=== PATIENT | female | born 1995 ===

== ENCOUNTER 2017-07-05 10:43 | Emergency (ER) | payer OTHER ==
[2017-07-05 11:21] LABS: RBC URINE 3 /hpf (0-3); URINE BACTERIA OCC (<OCC); URINE BILIRUBIN NEGATIVE (NEGATIVE); URINE BLOOD NEGATIVE (NEGATIVE); URINE COLOR Yellow (YELLOW); URINE GLUCOSE (UA) NORMAL (Normal); URINE KETONE NEGATIVE (NEGATIVE); URINE LEUKOCYTE ESTERASE TRACE Leu/uL (Negative); URINE PROTEIN NEGATIVE (NEGATIVE); URINE UROBILINOGEN NORMAL mg/dL (0.2-1.0); WBC URINE 4 /hpf (0-5)
--- NOTE | 2017-07-05 12:08 | C.PDOC ---
History Of Present Illness 22 year old female with a history of gastritis presents to the ED with complaints of left sided back and pelvic pain, exacerbated by movement, that began last night. Patient states she was relaxing at home on her day off when the pain suddenly began. She denies use of control and states she is not sexually active. Patient denies fever, chills, nausea, vomiting, cough, chest pain, shortness of breath, or dysuria. Time Seen by Provider: 07/05/17 11:08 Chief Complaint (Nursing): Abdominal Pain History Per: Patient History/Exam Limitations: no limitations Onset/Duration Of Symptoms: Hrs (began last night ) Current Symptoms Are (Timing): Still Present Quality Of Discomfort: "Pain" Associated Symptoms: denies: Fever, Chills, Nausea, Vomiting, Urinary Symptoms Exacerbating Factors: Movement Recent travel outside of the [place]: No Abnormal Vaginal Bleeding: No Past Medical History Reviewed: Historical Data, Nursing Documentation, Vital Signs Vital Signs: Last Vital Signs Temp 98.4 F 07/05/17 15:41 Pulse 62 07/05/17 15:41 Resp 16 07/05/17 15:41 BP 109/67 07/05/17 15:41 Pulse Ox 100 07/05/17 15:41 - Medical History PMH: Gastritis Family History: States: Unknown Family Hx - Social History Hx Alcohol Use: No Hx Substance Use: No - Immunization History Hx Tetanus Toxoid Vaccination: No Hx Influenza Vaccination: No Hx Pneumococcal Vaccination: No Review Of Systems Constitutional: Negative for: Fever, Chills Cardiovascular: Negative for: Chest Pain, Palpitations Respiratory: Negative for: Cough, Shortness of Breath Gastrointestinal: Negative for: Nausea, Vomiting Genitourinary: Positive for: Pelvic Pain (left sided). Negative for: Dysuria Musculoskeletal: Positive for: Back Pain (left side back pain ) Physical Exam - Physical Exam Additional Physical Exam Comments: Constitutional: No acute distress. Head: Normocephalic. Atraumatic. Eyes: PERRL. EOMI ENT: Moist mucous membranes. Neck: Supple. Cardiovascular: Regular rate and rhythm. No murmur. Chest: No tenderness. Respiratory: Clear to auscultation bilaterally. No wheezing, rhonchi, or rales. GI: Soft. Nontender. Nondistended. no rebound or guarding. Normoactive bowel sounds. Back: No CVA tenderness. Left sided lumbar tenderness, muscle spasm palpated. Musculoskeletal: No swelling of extremities. No calf tenderness. Skin: No rash. Neurologic: Alert, no gross focal deficit. ED Course And Treatment O2 Sat by Pulse Oximetry: 100 (room air ) Progress Note: UA and Upreg were ordered, patient was given Toradol. Medical Decision Making Medical Decision Making: pt feeling much better now, with minimal pain. will d/c with nsaids and muscle relaxant. Disposition - Disposition Disposition: HOME/ ROUTINE Disposition Time: 15:18 Condition: IMPROVED Additional Instructions: [place] ibuprofeno segn lo prescrito; [place] relajante muscular cuando no conduce o trabaje. te hace dormir-puede alos slo tomarlo a la hora de acostarse. Seguimiento en la clnica mdica la prxima semana. Evite cualquier levantamiento pesado Prescriptions: Cyclobenzaprine [Cyclobenzaprine HCl] 10 mg PO Q8 #9 tab Ibuprofen [Motrin] 600 mg PO TID #30 tab Instructions: Muscle Spasm (ED) Forms: Gen Discharge Inst Bol[place]ian, [employer] (Bolivian) Print Language: SLOVENIAN - Clinical Impression Clinical Impression: Muscle spasm of back - PA / [employer] / Resident Statement MD/DO has reviewed & agrees with the documentation as recorded. - Scribe Statement The provider has reviewed the documentation as recorded by the Scribe Jacqui Seaman All medical record entries made by the Scribe were at my direction and personally dictated by me. I have reviewed the chart and agree that the record accurately reflects my personal performance of the history, physical exam, medical decision making, and the department course for this patient. I have also personally directed, reviewed, and agree with the discharge instructions and disposition.
--- NOTE | 2017-07-05 14:50 | CT ---
PROCEDURE: CT Abdomen and Pelvis without intravenous contrast HISTORY: left flank pain hematuria COMPARISON: None. TECHNIQUE: Without contrast.. Contrast Dose: 0 Radiation dose: Total exam DLP = 483.67 mGy-cm. This CT exam was performed using one or more of the following dose reduction techniques: Automated exposure control, adjustment of the mA and/or kV according to patient size, and/or use of iterative reconstruction technique. FINDINGS: LOWER THORAX: Unremarkable. LIVER: Unremarkable. No gross lesion or ductal dilatation. GALLBLADDER AND BILE DUCTS: Unremarkable. PANCREAS: Unremarkable. No gross lesion or ductal dilatation. SPLEEN: Unremarkable. ADRENALS: Unremarkable. No mass. KIDNEYS AND URETERS: No mass, calculus or hydronephrosis. No hydroureter or ureteral calculus. VASCULATURE: Unremarkable. No aortic aneurysm. BOWEL: Unremarkable. No obstruction. No gross mural thickening. APPENDIX: Unremarkable. Normal appendix. PERITONEUM: Unremarkable. No free fluid. No free air. LYMPH NODES: Unremarkable. No enlarged lymph nodes. BLADDER: Unremarkable. REPRODUCTIVE: Normal uterus. BONES: No acute fracture. OTHER FINDINGS: None. IMPRESSION: No evidence of urinary calculus or urinary tract obstruction. Unremarkable examination.
[2017-07-05 15:20] VITALS: O2SAT 100
[2017-07-05 15:42] VITALS: BP 109/67; PULSE 62; RESP 16; TEMP 98.4
== END 2017-07-05 15:42 | disposition home or self-care (01) ==
LOC: C.ER 10:43
DX: M62.830 Muscle spasm of back (principal)
CPT/HCPCS: 74176; 81001; 84703; 96374; 99284; J1885

== ENCOUNTER 2018-06-15 06:03 | Emergency (ER) | payer OTHER ==
[2018-06-15 06:13] VITALS: O2SAT 100
[2018-06-15] MEDS ORDERED: Sodium Chloride 0.9% 1,000 ML IV ONE (06:15)
--- NOTE | 2018-06-15 06:15 | C.PDOC ---
History Of Present Illness The patient presents to the ED for evaluation of abdominal pain which began two days ago. Patient notes her last menstrual period was in February 2018. She reports mild nausea and denies fever, chills, vaginal bleeding, vomiting. Time Seen by Provider: 06/15/18 06:14 Chief Complaint (Nursing): Abdominal Pain History Per: Patient History/Exam Limitations: no limitations Onset/Duration Of Symptoms: Days (2) Current Symptoms Are (Timing): Still Present Location Of Pain/Discomfort: Diffuse Radiation Of Pain To:: None Quality Of Discomfort: Dull, Cramping, "Pain" Associated Symptoms: Nausea. denies: Fever, Chills, Vomiting Exacerbating Factors: None Alleviating Factors: None Last Bowel Movement: Today Recent travel outside of the [place]: No Additional History Per: Patient Abnormal Vaginal Bleeding: No Last Menstral Period: 02/2018 Past Medical History Reviewed: Historical Data, Nursing Documentation, Vital Signs Vital Signs: Last Vital Signs Temp 98.5 F 06/15/18 06:10 Pulse 88 06/15/18 06:10 Resp 16 06/15/18 06:10 BP 114/73 06/15/18 06:10 Pulse Ox 100 06/15/18 06:27 - Medical History PMH: Gastritis Surgical History: No Surg Hx Family History: States: Unknown Family Hx - Social History Hx Alcohol Use: No Hx Substance Use: No - Immunization History Hx Tetanus Toxoid Vaccination: No Hx Influenza Vaccination: No Hx Pneumococcal Vaccination: No Review Of Systems Constitutional: Negative for: Fever, Chills Cardiovascular: Negative for: Chest Pain, Palpitations Respiratory: Negative for: Cough, Shortness of Breath Gastrointestinal: Positive for: Nausea, Abdominal Pain. Negative for: Vomiting , Diarrhea Genitourinary: Negative for: Dysuria, Frequency, Hematuria, Vaginal Discharge, Vaginal Bleeding Skin: Negative for: Rash, Lesions, Jaundice, Bruising Neurological: Negative for: Weakness, Numbness Physical Exam - Physical Exam Appears: Non-toxic, No Acute Distress Skin: Warm, Dry Head: Normacephalic Eye(s): bilateral: Normal Inspection Oral Mucosa: Moist Neck: Supple Chest: Symmetrical, No Deformity, No Tenderness Cardiovascular: Rhythm Regular, No Murmur Respiratory: No Rales, No Rhonchi, No Wheezing Gastrointestinal/Abdominal: Soft, Tenderness (mild, suprapubic ), No Guarding, No Rebound Extremity: Normal ROM, Capillary Refill (less than 2 seconds ) Neurological/Psych: Oriented x3 ED Course And Treatment - Laboratory Results Result Diagrams: 06/15/18 06:28 O2 Sat by Pulse Oximetry: 100 (on RA) Pulse Ox Interpretation: Normal Progress Note: Bloodwork, urinalysis, OB Transvaginal US ordered. IV Fluids given. Disposition Counseled Patient/Family Regarding: Studies Performed, Diagnosis - Disposition Disposition Time: 06:14 Condition: FAIR Forms: [place] [email or web address] (Hong Konger) - Clinical Impression Clinical Impression: Abdominal pain, - Scribe Statement The provider has reviewed the documentation as recorded by the Scribe (Karen Mejía) Provider Attestation: All medical record entries made by the Scribe were at my direction and personally dictated by me. I have reviewed the chart and agree that the record accurately reflects my personal performance of the history, physical exam, medical decision making, and the department course for this patient. I have also personally directed, reviewed, and agree with the discharge instructions and disposition. Physician Patient Turnover Patient Signed Over To: Conchita Higuera Handoff Comments: pending lab and ultrasound results
[2018-06-15 06:33] LABS: BASO # 0.1 K/uL (0.0-0.2); BASO % 1.2 % (0.0-2.0); EOS # 0.3 K/uL (0.0-0.7); EOS % 4.6 % (0.0-4.0); HEMOGLOBIN 12.1 g/dL (11.0-16.0); LYMPH # 1.7 K/uL (1.0-4.3); LYMPH % 30.7 % (20.0-40.0); MEAN CELL VOLUME 80.3 fL (81.0-99.0); MEAN CORPUSCULAR HEMOGLOBIN 27.2 pg (27.0-31.0); MEAN CORPUSCULAR HGB CONC 33.9 g/dL (33.0-37.0); MEAN PLATELET VOLUME 8.2 fL (7.2-11.7); MONO # 0.6 K/uL (0.0-0.8); MONO % 10.1 % (0.0-10.0); NEUT % 53.4 % (50.0-75.0); NRBC % 0.1 % (0.0-2.0); RBC 4.44 Mil/uL (3.80-5.20); RED CELL DISTRIBUTION WIDTH 15.4 % (11.5-14.5); WHITE BLOOD COUNT 5.6 K/uL (4.8-10.8)
[2018-06-15 06:41] LABS: INR 1.1; PROTHROMBIN TIME 12.3 SECONDS (9.7-12.2)
[2018-06-15 06:44] LABS: SQUAMOUS EPITHIAL 85 /hpf (0-5); URINE BACTERIA MANY (<OCC); URINE BILIRUBIN NEGATIVE (NEGATIVE); URINE BLOOD 1+ (NEGATIVE); URINE CLARITY Hazy (Clear); URINE COLOR Yellow (YELLOW); URINE GLUCOSE (UA) NORMAL (Normal); URINE LEUKOCYTE ESTERASE 3+ Leu/uL (Negative); URINE PROTEIN NEGATIVE (NEGATIVE); URINE UROBILINOGEN NORMAL mg/dL (0.2-1.0)
[2018-06-15 06:48] LABS: ALB/GLOB RATIO 1.3 (1.0-2.1); ALBUMIN 4.4 g/dL (3.5-5.0); ALT/SGPT 27 U/L (9-52); AST/SGOT 25 U/L (14-36); BLOOD UREA NITROGEN 9 mg/dL (7-17); CALCIUM 9.1 mg/dl (8.6-10.4); GFR NON-AFRICAN AMERICAN > 60; LIPASE 101 U/L (23-300)
[2018-06-15 08:57] VITALS: RESP 18
--- NOTE | 2018-06-15 11:12 | US ---
Date of service: 06/15/2018 HISTORY: abd pain, . LMP 03/07/2018 suggesting 14 week 2 day gestation. COMPARISON: None available. TECHNIQUE: Transabdominal and transvaginal pelvic ultrasound was performed with longitudinal and transverse images submitted for interpretation. FINDINGS: UTERUS: Measures 8.7 x 4.9 x 5.7 cm. Uterus is mildly enlarged anteverted without focal myometrial lesion appreciable. ENDOMETRIUM: Measures 24.9 mm in diameter. Endometrial grossly thickened but only minimally inhomogeneous in overall echotexture. No focal mass is appreciable for isolated however endometriosis or endometrial hyperplasia is considered. Color blood flows borderline increased and may indicate an element of endometritis. No intrauterine gestation appreciable. CERVIX: No cervical abnormality identified. RIGHT OVARY: Measures 3.5 x 2.4 x 2.5 cm. No solid mass. Normal flow. Small right ovarian follicles are identified. LEFT OVARY: Measures 2.9 x 1.6 x 2.8 cm. No solid mass. Normal flow. FREE FLUID: No significant free fluid noted. OTHER FINDINGS: No demonstrated ectopic gestation though given lack proven intrauterine gestation, ectopic gestation is difficult to completely exclude. IMPRESSION: Potential early nonvisualized intrauterine gestation though abnormal thickening anatomy age is appreciate up to 24.8 mm without focal cyst or solid mass associated grossly. No definite sonographic pattern of ectopic gestation though this is not excluded. demise is also not excluded. Serial serum beta-hCG analysis is advised as well as sonographic follow-up in 1 week. By LMP derived dates, there should be 14 week 2 day gestation which is clearly not identified.
[2018-06-15 12:00] VITALS: BP 103/64; PULSE 65; TEMP 98.4
== END 2018-06-15 12:32 | disposition home or self-care (01) ==
LOC: C.ER 06:03
DX: R10.9 Unspecified abdominal pain (principal); O26.892 Other specified pregnancy related conditions, second trimester; Z3A.14 14 weeks gestation of pregnancy
CPT/HCPCS: 76830; 76856; 80053; 81001; 83690; 84702; 85025; 85610; 85730; 86850; 86900; 87086; 96360; 99285; J7030

== ENCOUNTER 2018-06-17 09:13 | Emergency (ER) | payer OTHER ==
[2018-06-17 09:23] VITALS: RESP 18
--- NOTE | 2018-06-17 10:27 | C.PDOC ---
History Of Present Illness 23 year old female patient presents to the ER with c/o abdominal pain for x3 days. Patient reports she was seen and was shown she was 14 weeks with a UTI. Clinic did US and blood work which shows no IUP. Patient was instructed to come to ER for repeat of labs and Beta HCG. Patient denies fever, chills, nausea, vomiting and diarrhea. Chief Complaint (Nursing): Medical Clearance History Per: Patient History/Exam Limitations: no limitations Onset/Duration Of Symptoms: Days (x3) Current Symptoms Are (Timing): Still Present Past Medical History Reviewed: Historical Data, Nursing Documentation, Vital Signs Vital Signs: Last Vital Signs Temp 99.1 F 06/17/18 11:23 Pulse 62 06/17/18 11:23 Resp 18 06/17/18 11:23 BP 101/67 06/17/18 11:23 Pulse Ox 100 06/17/18 11:23 - Medical History PMH: Gastritis Family History: States: Unknown Family Hx - Social History Hx Alcohol Use: No Hx Substance Use: No - Immunization History Hx Tetanus Toxoid Vaccination: No Hx Influenza Vaccination: No Hx Pneumococcal Vaccination: No Review Of Systems Except As Marked, All Systems Reviewed And Found Negative. Constitutional: Negative for: Fever, Chills Gastrointestinal: Positive for: Abdominal Pain. Negative for: Nausea, Vomiting , Diarrhea Physical Exam - Physical Exam Appears: Non-toxic, No Acute Distress Skin: Normal Color, Warm, Dry Head: Normacephalic Eye(s): bilateral: Normal Inspection Cardiovascular: Rhythm Regular Respiratory: Normal Breath Sounds Gastrointestinal/Abdominal: Soft, No Tenderness Back: No CVA Tenderness Extremity: Normal ROM (x4) Neurological/Psych: Oriented x3, Normal Speech Gait: Steady ED Course And Treatment O2 Sat by Pulse Oximetry: 99 (RA) Pulse Ox Interpretation: Normal Medical Decision Making Medical Decision Making: Impression: abdominal pain and UTI Plans: -- blood work -- tylenol Reassess: Disposition - Disposition Referrals: [facility] [Outside] Disposition: HOME/ ROUTINE Disposition Time: 11:48 Condition: GOOD Additional Instructions: [facility] with [facility] in [facility] few days and will need repeat labs in two days. Forms: [employer] (Croatian) - Clinical Impression Clinical Impression: Early stage of - Scribe Statement The provider has reviewed the documentation as recorded by the Scribe [place] Do Provider Attestation: All medical record entries made by the Scribe were at my direction and personally dictated by me. I have reviewed the chart and agree that the record accurately reflects my personal performance of the history, physical exam, medical decision making, and the department course for this patient. I have also personally directed, reviewed, and agree with the discharge instructions and disposition.
[2018-06-17 11:24] VITALS: BP 101/67; PULSE 62; TEMP 99.1
[2018-06-19 16:25] VITALS: O2SAT 99
== END 2018-06-17 11:49 | disposition home or self-care (01) ==
LOC: C.ER 09:13
DX: O26.892 Other specified pregnancy related conditions, second trimester (principal); Z3A.14 14 weeks gestation of pregnancy